=== PATIENT | female | born 1975 | race Caucasian/White ===

== ENCOUNTER 2017-02-22 18:13 | Emergency (ER) | payer BC ==
[~2017-02-22 18:13] MED LIST: [UNRECOGNIZED DRUG - CODE] PO
[2017-02-22 18:52] LABS: BASOPHILS 0.4 %; BASOPHILS ABSOLUTE 0.01 10/3/uL (0.0-0.16); EOSINOPHILS 3.3 %; EOSINOPHILS ABSOLUTE 0.08 10/3/uL (0.0-0.53); HEMOGLOBIN 13.1 g/dL (12.0-16.0); LYMPHOCYTES 73.4 %; LYMPHOCYTES ABSOLUTE 1.77 10/3/uL (0.67-4.30); MEAN CORPUS HGB CONC 36.4 g/dL (32.0-36.0); MEAN CORPUSCULAR HEMOGLOB 31.8 pg (26.0-34.0); MEAN CORPUSCULAR VOLUME 87.4 fL (80-100); MONOCYTES 12.4 %; NEUTROPHILS 10.5 %; NEUTROPHILS ABSOLUTE 0.25 10/3/uL (2.02-8.40); PLATELET COUNT 166 10/3/uL (150-400); RBC DISTRIBUTION WIDTH 12.7 % (12.0-16.0); RED CELL COUNT 4.12 10/6/uL (4.0-5.6)
[2017-02-22 18:59] LABS: ER CBC TAT 0 Hrs 12 Mins; WHITE BLOOD CELLS 2.4 10/3/uL (4.5-10.5)
[2017-02-22 19:01] LABS: MANUAL DIFF NO %
[2017-02-22 19:05] LABS: BUN (BLOOD UREA NITROGEN) 14 MG/DL (6-23); CALCIUM, SERUM 8.8 MG/DL (8.5-10.4); CHLORIDE, SERUM 104 MMOL/L (96-112); CO2 (CARBON DIOXIDE) 29 MMOL/L (24-34); CREATININE 0.99 MG/DL (0.55-1.02); GFR AFRICAN AMERICAN 82 ML/MIN (>=60); GFR NON AFRICAN AMERICAN 71 ML/MIN (>=60); GLUCOSE, SERUM 98 MG/DL (60-99); SODIUM, SERUM 140 MMOL/L (135-148)
[2017-02-22 19:13] LABS: EOSINOPHILS 6 %; EOSINOPHILS ABSOLUTE (CALC) 0.14 10/3/uL (0.0-0.53); ER DIFF TAT 0 Hrs 26 Mins; LYMPHOCYTES 78 %; LYMPHOCYTES ABSOLUTE (CALC) 1.87 10/3/uL (0.67-4.30); MONOCYTES 6 %; MONOCYTES ABSOLUTE (CALC) 0.14 10/3/uL (0.21-1.20); NEUTROPHILS ABSOLUTE (CALC) 0.24 10/3/uL (2.02-8.40); SEGMENTED NEUTROPHIL (0) 10 %; TOTAL NUCLEATED CELLS 100
[2017-02-22 19:17] LABS: PLATELET ESTIMATE ADQ (ADEQUATE); RBC MORPHOLOGY NORM (NORMAL)
[2017-02-22 19:38] LABS: PATH REVIEW YES
[2017-02-22 19:53] LABS: INFLUENZA A SCREEN NEGATIVE (NEGATIVE); INFLUENZA B SCREEN NEGATIVE (NEGATIVE)
[2017-02-24 09:58] LABS: PATH REVIEW SEE PATHOLOGY REPORT
== END 2017-02-22 21:00 | disposition home or self-care (01) ==
LOC: ER 18:13
PROVIDERS: Nurse Practitioner Acute Care; Physician Assistant
DX: J40 Bronchitis, not specified as acute or chronic (principal); D70.9 Neutropenia, unspecified; I10 Essential (primary) hypertension; Z79.899 Other long term (current) drug therapy
CPT/HCPCS: 71010; 80048; 85025; 87804; 94640; 96372; 99283